=== PATIENT | male | born 1990 | race Hispanic/Latino ===

== ENCOUNTER → 2016-06-10 | Day surgery (SDC) | payer OTHER ==
[~2016-06-10] VITALS: Ht 188 cm; Wt 99.8 kg
[~2016-06-10] MED LIST: BUPIVACAINE HCL 0.25% 30 ML VIAL As Ordered ONE; BUPIVACAINE HCL 0.25% 30 ML VIAL XX ONE; EYE; GLYCOPYRROLATE INJ 0.2 MG/ML 2 ML VIAL As Ordered ONE; KETOROLAC 60 MG/2 ML VIAL (J1885) As Ordered ONE; LIDOCAINE 1% SDV INJ 30 ML VIAL As Ordered ONE; LIDOCAINE 1% SDV INJ 30 ML VIAL XX ONE; LIDOCAINE 2% INJ 100 MG/5 ML SDV (FOR ANES.) As Ordered ONE; LR 1,000 ML IV SCH; MIDAZOLAM INJ 2 MG/2 ML VIAL (J2250) As Ordered ONE; NEOSTIGMINE 1MG/ML 5 ML SYRINGE (J2710) As Ordered ONE; NORC5TAB PO; ONDANSETRON 4MG/2ML VIAL (J2405) As Ordered ONE; ONDANSETRON 4MG/2ML VIAL (J2405) IV PRN; PERCOCET 5MG/325MG TAB PO PRN; PROPOFOL 200 MG/20 ML VIAL As Ordered ONE; ROCURONIUM BROMIDE 50 MG/5 ML VIAL As Ordered ONE; dexameTHASONE 4 MG/ML 1ML VIAL (J1100) As Ordered ONE; fentaNYL 100 MCG/2 ML INJECTION (J3010) As Ordered ONE; fentaNYL 100 MCG/2 ML INJECTION (J3010) IV PRN
--- NOTE | 2016-06-10 10:00 | RO ---
DATE OF PROCEDURE: 06/10/2016 PREOPERATIVE DIAGNOSIS: Right inguinal hernia. POSTOPERATIVE DIAGNOSIS: Right indirect inguinal hernia, moderate size with preperitoneal lipoma removed. PROCEDURE: SURGEON: Zack Peñaloza MD GUEST EXPERIENCE SPECIALIST: Dorcas Turcios NP ANESTHESIA: General anesthesia. ESTIMATED BLOOD LOSS: Less than 25 mL. COMPLICATIONS: None. REMARKS: Patient tolerated procedure well. 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 Started noticing a lump over the area. He was diagnosed with right inguinal hernia, sent to my clinic and we discussed his options and come to a decision to perform laparoscopic repair. We are doing this with the aid of the da Kier[employer] robot platform in a transabdominal preperitoneal fashion. Patient is given Ancef 2 grams IV preoperatively for prophylaxis. He was brought to the operating room. General endotracheal anesthesia started without any complications. He was placed in Jas stirrups, in lithotomy position. Peguero catheter placed. Sequential compressive device (SCD) boots placed for deep venous thrombosis (DVT) prophylaxis. His abdomen and groin area prepped and draped in usual sterile fashion. We began our surgery after a surgical time-out. A small, 1 cm incision was created above his umbilicus and a Veress needle inserted in controlled fashion. CO2 insufflation then started to a pressure of 15 mmHg. Using the same incision, a 5 mm Visiport was placed under direct vision of laparoscope. The insertion site was inspected for injury, none was found. He was placed in slight Trendelenburg position, tilted towards the left side to further expose the right groin area. On diagnostic laparoscopy, hernia confirmed at the right side. This was indirect. No hernia was found in the left side, though most of the groin was covered with the sigmoid colon. An 8 mm instrument trocar was placed over the right and left lower quadrant areas along the umbilical line and then we switched the 5 mm port to an 8 mm camera port. The [employer] / [employer] robot was maneuvered in place in-between the patient's legs. The ports were docked. We used scissor with a monopolar cautery and fenestrated forceps of bipolar cautery for our instruments. I unscrubbed to control the camera and instruments of the surgeon's console. I began by opening up the peritoneum roughly about 4 cm above the superior edge of the fascial defect, beginning at the medial umbilical ligament, going laterally in an arc-like fashion towards the anterior-superior iliac spine. We then dissected the peritoneum free exposing the hernia space. A 3-4 cm lobulated preperitoneal fat was lodged onto the defect. This was dissected free off the surrounding structures and removed. Hemostasis performed with the cautery. We continued our dissection freeing up the hernia sac from the ductus deferens and the testicular vessels, which were identified and dissected free off the peritoneum in the hernia sac. We continued dissection medially exposing the pubic tubercle and the pelvic ridge, as well as the Scout's ligament. We continued dissection inferiorly to accommodate our mesh. Once this was done, hemostasis was checked and once satisfied, I chose a large 3DMax Light mesh. This was placed into the abdomen, positioned in the preperitoneal space adequately covering our hernia defect, likewise the femoral space and the direct hernia space. A single stitch of #2-0 Vicryl was used to tack the mesh onto the pubic tubercle. After making sure the mesh is adequately positioned, the peritoneum was then closed with running #2-0 V-Loc starting laterally, going medially. The removed preperitoneal fat was placed in an EndoCatch bag and retrieved through one of our port sites. I scrubbed back in. The robot undocked. Instruments removed. The trocars were removed after deflating the abdomen. Since we are using an 8 mm port, his skin was closed with #4-0 Monocryl in subcuticular fashion. At the end, I placed an ilioinguinal block with using mixture of 1% lidocaine, 0.25% Marcaine, as well as infiltrating the area at the skin incisions. The patient was then promptly awakened, extubated. His Peguero catheter removed and brought to recovery room stable. CHARLY
[2016-06-10 12:15] LABS: HIVSOURCE0 NEGATIVE (NEGATIVE)
[2016-06-10 12:17] LABS: CONTROL LINE INT CTR LINE PRESENT; HIV SOURCE PT 1 NEGATIVE (NEGATIVE)
[2016-06-10 12:25] VITALS: BP 136/75
[2016-06-10 12:55] LABS: HEP C VIRUS AB INDEX SOURCE PT < 0.0 INDEX (0.0-0.8)
== END ==
LOC: M SDC 06:10
PROVIDERS: ATTEND Surgery
DX: K40.90 Unilateral inguinal hernia, without obstruction or gangrene, not specified as recurrent (principal); D17.79 Benign lipomatous neoplasm of other sites
CPT/HCPCS: 36415; 49650; 86803; 87340; 87806; 88302; C1781; J0690; J1100; J1885; J2250; J2405; J2710; J3010